=== PATIENT | female | born 1950 | race Caucasian/White ===

== ENCOUNTER 2017-09-11 14:25 | Emergency (ER) | END 2017-09-11 18:11 | disposition home or self-care (01) ==

== ENCOUNTER 2018-03-20 01:40 | Emergency (ER) | payer OTHER ==
[~2018-03-20] VITALS: Ht 175.3 cm; Wt 88.1 kg
[~2018-03-20 01:40] MED LIST: MECL12.574 PO
[2018-03-20 01:43] VITALS: BP 133/61; PULSE 69; RESP 18; Ht 175.3 cm; Wt 88.1 kg
[2018-03-20] MEDS ORDERED: CIPR500T4 PO (02:03)
--- NOTE | 2018-03-20 03:48 | ERD ---
ER Documentation Chief Complaint Chief Complaint painful/burning urination/blood in urine x 1 day HPI 67-year-old female presenting with dysuria and hematuria times 2 days. Patient has never had this pain before. She has not taken medications for symptoms. She has no fevers. Denies back pain. Denies medical problems. NKDA. Surgical history is hysterectomy, hernia, appendectomy. Social history denies ROS All systems reviewed and are negative except as per history of present illness. Medications Home Meds Active Scripts Ciprofloxacin Hcl* (Ciprofloxacin Hcl*) 500 Mg Tablet, 500 MG PO BID for 7 Days, TAB Prov:CORRINE EDWARD PA-C 03/20/18 Meclizine Hcl* (Antivert*) 12.5 Mg Tab, 25 MG PO Q6H PRN for DIZZINESS, #20 TAB Prov:LINDSEY RUSSELL MD 09/11/17 Allergies Allergies: Coded Allergies: No Known Allergy (Unverified , 03/20/18) PMhx/Soc History of Surgery: Yes (Appy,Inguinal Hernia,Hysterectomy) Anesthesia Reaction: No Hx Neurological Disorder: No Hx Respiratory Disorders: No Hx Cardiac Disorders: No Hx Psychiatric Problems: No Hx Miscellaneous Medical Probl: Yes (Diverticulitis,Hemorrhoids,GERD) Hx Alcohol Use: No Hx Substance Use: No Hx Tobacco Use: No Smoking Status: Never smoker FmHx Family History: No diabetes, No coronary disease, No other Physical Exam Vitals Vital Signs Date Temp Pulse Resp B/P (MAP) Pulse Ox O2 O2 Flow FiO2 Time Delivery Rate 03/20/18 97.6 69 18 133/61 99 01:43 (85) Physical Exam GENERAL: The patient is well-appearing, well-nourished, in no acute distress CHEST: Clear to auscultation bilaterally. There are no rales, wheezes or rhonchi. HEART: Regular rate and rhythm. No murmurs, clicks, rubs or gallops. No S3 or S4. ABDOMEN:Soft, nontender and nondistended. Good bowel sounds. No rebound or guarding. No gross peritonitis. No gross organomegaly or masses. BACK: No midline or flank tenderness. Results 24 hrs Laboratory Tests Test 03/20/18 02:00 Bedside Urine pH (LAB) 6.5 Bedside Urine Protein (LAB) 3+ Bedside Urine Glucose (UA) Negative Bedside Urine Ketones (LAB) Negative Bedside Urine Blood 3+ Bedside Urine Nitrite (LAB) Negative Bedside Urine Leukocyte Esterase (L 2+ Procedures/MDM ER course: Urine appears to be infected via urine dip. MDM: 67-year-old female presenting with dysuria with urinary frequency and hematuria. Patient's urinalysis does show signs of infection which patient will be treated with antibiotics. I have low suspicion for pyelonephritis. I have low suspicion for septic stone. Patient is discharged with supportive medications and told to follow-up with primary care within 1-2 days for close evaluation. Patient is told if symptoms change or worsen to immediately return to the ER. All questions answered at discharge Departure Diagnosis: Primary Impression: UTI (urinary tract infection) Condition: Stable Patient Instructions: Understanding Urinary Tract Infections (UTIs) Referrals: [facility] YOU HAVE RECEIVED A MEDICAL SCREENING EXAM AND THE RESULTS INDICATE THAT YOU DO NOT HAVE A CONDITION THAT REQUIRES URGENT TREATMENT IN THE EMERGENCY DEPARTMENT. FURTHER EVALUATION AND TREATMENT OF YOUR CONDITION CAN WAIT UNTIL YOU ARE SEEN IN YOUR DOCTORS OFFICE WITHIN THE NEXT 1-2 DAYS. IT IS YOUR RESPONSIBILITY TO MAKE AN APPOINTMENT FOR FOLOW-UP CARE. IF YOU HAVE A PRIMARY DOCTOR --you should call your primary doctor and schedule an appointment IF YOU DO NOT HAVE A PRIMARY DOCTOR YOU CAN CALL OUR PHYSICIAN REFERRAL HOTLINE AT IF YOU CAN NOT AFFORD TO SEE A PHYSICIAN YOU CAN CHOSE FROM THE FOLLOWING [facility] [address] [facility] [address] [facility] [address] [facility] [address] [facility] [id number] [facility]. [facility]. [address] Additional Instructions: FOLLOW UP WITH YOUR PRIMARY CARE PHYSICIAN TOMORROW.Return to this facility if you are not improving as expected. CORRINE EDWARD PA-C Mar 20, 2018 03:48
== END 2018-03-20 02:20 | disposition home or self-care (01) ==
LOC: FTE 01:40
DX: N39.0 Urinary tract infection, site not specified (principal)
CPT/HCPCS: 81003; 87086; 99283

== ENCOUNTER 2018-09-18 13:35 | Emergency (ER) | payer OTHER ==
[~2018-09-18] VITALS: Ht 170.2 cm; Wt 87.5 kg
[~2018-09-18 13:35] MED LIST changes: +CIPR500T4 PO
[2018-09-18 13:54] VITALS: Ht 170.2 cm; Wt 87.5 kg
--- NOTE | 2018-09-18 15:34 | ERD ---
ER Documentation Chief Complaint Chief Complaint pain behind the left ear HPI The patient is a 68-year-old female, presenting to the ER because of pain behind the left ear for 3 days, denies any discharge, denies fever, chills, neck pain, chest pain, dyspnea, abdominal pain, vomiting, dizzy, diarrhea. She does not smoke nor drink Past medical history: Chronic knee pain Past surgical history: She had EGD 3 days ago that was unremarkable, ap pendectomy, left inguinal herniorrhaphy, tubal ligation ROS All systems reviewed and are negative except as per history of present illness. Medications Home Meds Active Scripts Hydrocodone/Acetaminophen (Flomot 5-325 Tablet) 1 Each Tablet, 1 TAB PO Q6H PRN for PAIN, #7 TAB Prov:GABRIEL MENDOZA MD 09/18/18 Ofloxacin Otic (Ofloxacin Otic) 5 Ml Drops, 5 DROP LEFT EAR BID for 10 Days, #1 BOTTLE Prov:GABRIEL MENDOZA MD 09/18/18 Azithromycin* (Zithromax*) 250 Mg Tablet, 250 MG PO .ZPACK DIRECTED, #6 TAB TAKE 500 MG (2 TABS) THE FIRST DAY THEN 250 MG (1 TAB) DAYS 2-5 Prov:GABRIEL MENDOZA MD 09/18/18 Ciprofloxacin Hcl* (Ciprofloxacin Hcl*) 500 Mg Tablet, 500 MG PO BID for 7 Days, TAB Prov:CORRINE EDWARD PA-C 03/20/18 Meclizine Hcl* (Antivert*) 12.5 Mg Tab, 25 MG PO Q6H PRN for DIZZINESS, #20 TAB Prov:LINDSEY RUSSELL MD 09/11/17 Allergies Allergies: Coded Allergies: No Known Allergy (Unverified , 03/20/18) PMhx/Soc History of Surgery: Yes (Appy,Inguinal Hernia,Hysterectomy) Anesthesia Reaction: No Hx Neurological Disorder: No Hx Respiratory Disorders: No Hx Cardiac Disorders: No Hx Psychiatric Problems: No Hx Miscellaneous Medical Probl: Yes (Diverticulitis,Hemorrhoids,GERD) Hx Alcohol Use: No Hx Substance Use: No Hx Tobacco Use: No Physical Exam Vitals Vital Signs Date Temp Pulse Resp B/P (MAP) Pulse Ox O2 O2 Flow FiO2 Time Delivery Rate 09/18/18 97.6 58 16 121/45 98 Room Air 15:44 (70) 09/18/18 97.5 75 18 150/65 98 13:54 (93) Physical Exam Const: No acute distress. Head: Atraumatic. Eyes: Normal Conjunctiva. ENT: Normal External Ears, Nose and Mouth. Left tympanic membrane is mildly bulging and erythematous, left ear canal is edematous and erythematous, no postauricular lymphadenopathy Neck: Full range of motion. No meningismus. Resp: Clear to auscultation bilaterally. Cardio: Regular rate and rhythm. Abd: Soft, non distended, normal bowel sounds, non tender. Skin: No petechiae or rashes. Back: No midline or flank tenderness. Ext: No cyanosis, or edema. Neur: Awake and alert. No focal deficit Psych: Normal Mood and Affect. Procedures/MDM MEDICAL MAKING DECISION: The patient is a 68-year-old female, presenting with acute left otitis media, left otitis externa, is stable for outpatient follow- up The differential diagnoses considered include but are not limited to mastoiditis, anxiety attack, panic attack Departure Diagnosis: Primary Impression: Otitis media Additional Impression: Otitis externa Condition: Good Comments She was discharged with Zithromax, ofloxacin otic, 7 tablets of Flomot 5 mg I discussed the findings with the patient. I advised the patient to follow-up with the primary physician in about 1-2 days, sooner if needed and return if any concern. Disclaimer: Inadvertent spelling and grammatical errors are likely due to EHR/dictation software use and do not reflect on the overall quality of patient care. Also, please note that the electronic time recorded on this note does not necessarily reflect the actual time of the patient encounter. GABRIEL MENDOZA MD Sep 18, 2018 15:34
[2018-09-18 15:44] VITALS: BP 121/45; PULSE 58; RESP 16
[2018-09-18] MEDS ORDERED: AZIT250T PO (15:46)
[2018-09-18] MEDS ORDERED: OFLO5DRO7 LEFT EAR (15:47)
[2018-09-18] MEDS ORDERED: HYDR-4011 PO (15:47)
== END 2018-09-18 17:54 | disposition home or self-care (01) ==
LOC: E/R 13:35
DX: H66.92 Otitis media, unspecified, left ear (principal); H60.92 Unspecified otitis externa, left ear
CPT/HCPCS: 99283